=== PATIENT | female | born 1955 | race Caucasian/White ===

== ENCOUNTER 2019-02-16 22:45 | Inpatient (IN) | payer BC ==
[2019-02-16 23:27] LABS: #Basophils 0.1 thou/uL (0.0-0.2); #Eosinphils 0.3 thou/uL (0.0-0.7); #Lymphocytes 3.3 thou/uL (1.20-3.40); #Monocytes 0.7 thou/uL (0.11-0.59); #Neutrophils 3.2 thou/uL (1.40-6.50); %Basophils 0.8 % (0.0-1.0); %Eosinophils 4.3 % (0.0-10.0); %Lymphocytes 43.1 % (21.0-51.0); %Monocytes 9.5 % (0.0-10.0); %Neutrophils 42.2 % (42.0-75.0); Hemoglobin 12.2 g/dL (12.0-16.0); Mean Corpuscular HGB CONC 33.3 g/dL (32.0-36.0); Mean Corpuscular Hemoglobin 30.5 pg (27.0-31.0); Mean Corpuscular Volume 91.4 fL (78.0-98.0); Mean Platelet Volume 6.9 fL (7.4-10.4); Platelet Count 289 thou/uL (130-400); RBC Distribution Width 12.6 % (11.5-14.5); Red Blood Cell (RBC) Count 4.02 mill/uL (4.20-5.40); White Blood Cell (WBC) Count 7.6 thou/uL (4.8-10.8)
--- NOTE | 2019-02-16 23:32 | CT ---
CT HEAD WITHOUT CONTRAST: 02/16/19 Multiple axial tomograms were obtained through the head without IV enhancement. INDICATION: Mental status change. Ventricles have normal size and position. Moderate chronic ischemic white matter changes are noted in both cerebral hemispheres. There is no mass or hemorrhage. No evidence of acute cortical infarct. IMPRESSION: Moderately severe chronic ischemic white matter change. POS: [facility]
[2019-02-16 23:36] LABS: Bilirubin Negative (Negative); Blood, Urine Negative (Negative); Clarity Clear (Clear); Glucose, Urine (Dipstick) Negative (Negative); Leukocyte Negative (Negative); Nitrite Negative (Negative); Protein, Urine (Dipstick) Negative (Neg-Trace); Urobilinogen 0.2 mg/dL (0.2-1.0); pH, Urine 5.5 (5.0-9.0)
[2019-02-16 23:42] LABS: Acetaminophen Less than 6.0 mcg/mL (10.0-30.0); Alcohol Less than 10 mg/dL (Less than 10); Salicylate Less than 8.0 mg/dL (15.0-30.0)
[2019-02-16 23:44] LABS: ALT (SGPT) 18 U/L (8-55); AST (SGOT) 20 U/L (5-34); Alkaline Phosphatase 93 U/L (40-150); Anion Gap 13 mmol/L (10-20); BUN (Urea Nitrogen) 15 mg/dL (9.8-20.1); Bilirubin, Total 0.4 mg/dL (0.2-1.2); Calc. Creatinine Clearance 0 mL/min (70-130); Calcium 9.4 mg/dL (7.8-10.44); Carbon Dioxide 21 mmol/L (23-31); Chloride 112 mmol/L (98-107); Estimated GFR-MDRD 68; Globulin 2.9 g/dL (2.4-3.5); Glucose 102 mg/dL (80-115); Magnesium 2.5 mg/dL (1.6-2.6); Potassium 3.9 mmol/L (3.5-5.1); Protein, Total 6.9 g/dL (6.0-8.3); Sodium 142 mmol/L (136-145)
[2019-02-16 23:45] LABS: Amphetamine Not Detected (NotDetected); Barbiturates Screen Not Detected (NotDetected); Benzodiazepine Screen Not Detected (NotDetected); Cocaine Metabolite Screen Not Detected (NotDetected); Medtox Control Line Valid? VALID (VALID); Medtox Reader # READER 1; Methadone Not Detected (NotDetected); Methamphetamine Not Detected (NotDetected); Opiate Screen Not Detected (NotDetected); Oxycodone Screen Not Detected (NotDetected); Phencyclidine (PCP) Not Detected (NotDetected); THC/Cannabinoid Screen Not Detected (NotDetected); Tricyclic Screen Not Detected (NotDetected)
[2019-02-17] MEDS ORDERED: Aspirin 325 MG TAB ONE (00:07)
[2019-02-17 03:30] VITALS: BMI 40.8
[2019-02-17] MEDS ORDERED: hydrALAZINE 20 MG/ML VIAL SLOW IVP PRN (04:30)
--- NOTE | 2019-02-17 05:16 | HP ---
PRIMARY CARE PROVIDER: None. CHIEF COMPLAINT: Difficulty speaking. HISTORY OF PRESENT ILLNESS: Ms. Mendoza is a pleasant 63-year-old lady, who was seen at [facility] on 02/17/2019. She does not have a primary care provider. She reportedly started having difficulty speaking yesterday morning. Later in the day, she went to have lunch with her daughter. After having lunch, they went home. At home, she again had difficulty speaking. Her main difficulty appeared to consist of finding words. She was substituting nonsensical words. She reportedly used the word bread to describe a traffic light. She was therefore brought to the emergency room. By the time I saw the patient, her symptoms had resolved. REVIEW OF SYSTEMS: All other systems reviewed and found to be negative. PAST MEDICAL HISTORY: None. PAST SURGICAL HISTORY: section and tonsillectomy. SOCIAL HISTORY: No history of tobacco use, alcohol use, or recreational drug use. FAMILY HISTORY: Significant for stroke in her mother and sister. ALLERGIES: NO KNOWN DRUG ALLERGIES. CURRENT MEDICATIONS: None. PHYSICAL EXAMINATION: GENERAL: On examination, Ms. Mendoza is awake and alert, not in acute distress. VITAL SIGNS: Blood pressure is 126/71, pulse 77, respiratory rate 12, and oxygen saturation 96% on room air. She is afebrile. She is morbidly obese, with a BMI of 40.8. EYES: No scleral icterus, no conjunctival pallor. ENT: Moist mucosal membranes. No oropharyngeal erythema or exudates. NECK: Supple, nontender, trachea is midline. RESPIRATORY: Accessory muscles of breathing are not active. Chest wall movements are symmetric bilaterally. Lungs are clear to auscultation without wheeze, rhonchi, or crepitations. CARDIOVASCULAR: S1 and S2 are heard, regular. Peripheral pulses palpable. No carotid bruit. No pericardial rub. ABDOMEN: Soft, nontender, bowel sounds heard. NEUROLOGIC: Cranial nerves 2 through 12 are intact. No focal motor or sensory deficits. Power is 5/5 in all 4 extremities. Deep tendon reflexes are 2+, plantars are downgoing bilaterally. Speech is fluent. MUSCULOSKELETAL: Power is 5/5 in all 4 extremities. SKIN: No rashes or subcutaneous nodules. LYMPHATIC: No cervical lymphadenopathy. PSYCHIATRIC: Normal mood, normal affect, the patient is oriented to person, place, and time. LABORATORY DATA: Ms. Mendoza's labs and investigations were reviewed. Electrocardiogram showed normal sinus rhythm, no ST changes to suggest an acute coronary syndrome. Noncontrast CT scan of the brain showed moderately severe chronic ischemic white matter change. She has an unremarkable CBC, mildly decreased carbon dioxide of 21, elevated chloride of 112, otherwise normal comprehensive metabolic profile, normal troponin-I and normal TSH. Urinalysis is positive for trace ketones. Plasma and urine drug screens were negative. ASSESSMENT AND PLAN: Ms. Mendoza is a pleasant 63-year-old lady, who was seen at [facility] on 02/17/2019. Her problem list includes: 1. Transient ischemic attack: Ms. Mendoza had episodes of expressive aphasia, which appeared to have resolved. She will be admitted to the hospital for further workup, including 2D echocardiogram, carotid Dopplers, MRI of the brain, and Neurology Service consult. We will continue her on aspirin. 2. Metabolic acidosis: Mild, likely secondary to starvation ketosis. We will recheck Chem-7. LEVEL OF RISK: Moderate. LEVEL OF COMPLEXITY: Moderate. Job ID: [id number]
[2019-02-17] MEDS: Aspirin 325 mg Enteric Coated Tablet PO SCH (08:24)
--- NOTE | 2019-02-17 10:15 | CON ---
DATE OF CONSULTATION: 02/17/2019 CONSULTING PHYSICIAN: Hospitalist Services. IMPRESSION: Possible left hemispheric ischemia with subjective word-finding difficulty and subtle right-sided weakness. PLAN: 1. Aspirin. 2. Low-dose statin. 3. Carotid ultrasound. 4. Echocardiogram. 5. MRI of the brain. HISTORY OF PRESENT ILLNESS: Ms. Mendoza is a 63-year-old white female with no significant past history other than being overweight. She has been working at [employer] for 21 years. She reports she has been having a very heavy work schedule, having to work 6 out of 7 days of the week. She was at home and noticed that she was having some word-finding difficulty. 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 She has no problems with comprehension. She denies that there has been any slurring or difficulty swallowing. She denies any lateralized weakness or numbness. She has no problems with reading. She has never had any stroke symptoms in the past. PAST MEDICAL HISTORY: Negative for any risk factors. ALLERGIES: NONE. SOCIAL HISTORY: No tobacco or alcohol. FAMILY HISTORY: Noncontributory. MEDICATIONS: Reviewed. REVIEW OF SYSTEMS: A 10-system review of systems is otherwise negative. PHYSICAL EXAMINATION: GENERAL: She is an overweight, middle-aged woman, sitting at the bedside, in no distress. VITAL SIGNS: Blood pressure 137/73, pulse 66, respirations 20, and temperature 98. HEENT: Pupils are equal and reactive. Conjunctivae clear. Oropharynx clear. NECK: Supple. No lymphadenopathy. EXTREMITIES: No cyanosis or edema. NEUROLOGIC: She is alert and appropriate. Her speech is fluent and clear. Cranial nerves were intact. Motor exam showed a slight fix on arm roll testing on the right side. Sensation was intact to touch. Her gait and stability were normal. No abnormal movements were seen. No tremor or dysmetria was present. LABORATORY DATA: CBC, serum chemistry, urinalysis, and toxicology were all negative. Lipid profile was not performed. IMAGING: CT scan of the brain showed some microvascular disease. SUMMARY: This is a middle-aged woman with evidence of some microvascular disease on CT, but no other risk factors for a stroke. She presents with some subtle abnormalities of speech and possibly some weakness on the right. I agree with current treatment and workup. I will follow up with her tomorrow. Job ID: [id number]
--- NOTE | 2019-02-17 11:28 | PDOC.PN ---
- Subjective Encounter Start Date: 02/17/19 Encounter Start Time: 11:26 Subjective: Patient resting comfortably. Undergoing echo. States she feels well but -: concerned about upcoming travel plans tomorrow. Speech has improved. -: No further weakness in right arm. Denies any headache or dizziness. Has not been mobilizing yet this morning. Reports good appetite. Denies any n/v. No abdominal pain. - Objective MAR Reviewed: Yes Vital Signs & Weight: Vital Signs (12 hours) Temp Pulse Resp BP BP Pulse Ox 02/17/19 07:20 98.0 F 66 20 137/73 93 L 02/17/19 04:00 98.7 F 77 12 126/71 96 02/17/19 01:15 97.8 F 67 18 183/78 H 96 Weight Weight 215 lb 14.4 oz I&O: 02/16/19 02/17/19 02/18/19 06:59 06:59 06:59 Intake Total 200 300 Balance 200 300 Result Diagrams: 02/18/19 04:20 02/18/19 04:20 Phys Exam - Physical Examination Constitutional: NAD HEENT: PERRLA, moist MMs, sclera anicteric, oral pharynx no lesions Neck: no nodes, supple, full ROM Respiratory: no wheezing, no rales, no rhonchi, clear to auscultation bilateral Cardiovascular: RRR Gastrointestinal: soft, non-tender, no distention, positive bowel sounds Musculoskeletal: no edema Neurological: normal sensation, moves all 4 limbs Psychiatric: normal affect, A&O x 3 Skin: no rash, normal turgor Dx/Plan (1) TIA (transient ischemic attack) Code(s): G45.9 - TRANSIENT CEREBRAL ISCHEMIC ATTACK, UNSPECIFIED Status: Acute (2) Metabolic acidosis Code(s): E87.2 - ACIDOSIS Status: Acute (3) Obesity Code(s): E66.9 - OBESITY, UNSPECIFIED Status: Chronic Qualifiers: Obesity classification: adult class 3 (BMI >= 40) Body mass index: BMI 40.0 -44.9 - Plan cont current plan of care Patient seen by Dr. Bui this morning. -: MRI Brain, Carotid US and Echo pending. -: Disposition based on those results. -: Will continue to monitor. -: ADDENDUM: Acute lacunar infarct in the left basilar ganglia. Dr. Jag aware, further imaging as per Dr. Bui. Switched to inpatient status. Patient seen and examined in room 202. Agree with above documentation by y. Is on asp, lipitor. BP is stable. D/w patient and family at bedside.
--- NOTE | 2019-02-17 12:02 | ULT ---
CAROTID ULTRASOUND: COMPARISON: None. HISTORY: TIA. TECHNIQUE: Multiplanar, johnson scale, and color Doppler images were obtained in a carotid ultrasound. Spectral an alysis of the Doppler waveforms was performed. FINDINGS: No significant plaque is seen in either internal or common carotid artery. The Doppler waveforms are normal bilaterally. Peak systolic velocity in the right ICA is 74 cm/s. Peak systolic velocity in the right CCA is 92 cm /s. The right ICA/CCA ratio is 0.8. Peak systolic velocity in the left ICA is 90 cm/s. Peak systolic velocity in the left CCA is 130 cm/ s. The left ICA/CCA ratio is 0.9. Both vertebral arteries demonstrate antegrade flow without focal stenosis. IMPRESSION: No evidence of hemodynamically significant stenosis. POS: [facility]
--- NOTE | 2019-02-17 12:47 | MRI ---
MRI BRAIN WITHOUT CONTRAST: HISTORY: Slurred speech. CORRELATION: CT scan from previous day. FINDINGS: There is a small focus of restricted diffusion in the left basal ganglia. No evidence of transcortic al infarct, hemorrhage, midline shift, or abnormal extraaxial fluid collections is seen. The ventric ular size is appropriate and the basilar cisterns are patent. Multiple foci of T2 prolongation in th e periventricular white matter are consistent with chronic small-vessel ischemic disease. The visual ized paranasal sinuses and mastoid air cells are well aerated. IMPRESSION: 1. Acute lacunar infarction in the left basal ganglia. 2. Chronic small-vessel ischemic disease. POS: [facility]
[2019-02-17] MEDS ORDERED: Atorvastatin Calcium 40 MG TAB PO SCH (21:00)
[2019-02-18 04:35] LABS: #Basophils 0.1 thou/uL (0.0-0.2); #Eosinphils 0.2 thou/uL (0.0-0.7); #Lymphocytes 2.5 thou/uL (1.20-3.40); #Monocytes 0.7 thou/uL (0.11-0.59); #Neutrophils 2.6 thou/uL (1.40-6.50); %Basophils 0.9 % (0.0-1.0); %Lymphocytes 40.9 % (21.0-51.0); %Monocytes 11.5 % (0.0-10.0); %Neutrophils 42.7 % (42.0-75.0); Hemoglobin 12.9 g/dL (12.0-16.0); Mean Corpuscular HGB CONC 33.2 g/dL (32.0-36.0); Mean Corpuscular Hemoglobin 30.7 pg (27.0-31.0); Mean Corpuscular Volume 92.2 fL (78.0-98.0); Mean Platelet Volume 6.9 fL (7.4-10.4); Platelet Count 238 thou/uL (130-400); RBC Distribution Width 12.6 % (11.5-14.5); Red Blood Cell (RBC) Count 4.22 mill/uL (4.20-5.40); White Blood Cell (WBC) Count 6.1 thou/uL (4.8-10.8)
[2019-02-18 05:06] LABS: Anion Gap 14 mmol/L (10-20); BUN (Urea Nitrogen) 15 mg/dL (9.8-20.1); Calc. Creatinine Clearance 119 mL/min (70-130); Calcium 8.9 mg/dL (7.8-10.44); Carbon Dioxide 19 mmol/L (23-31); Chloride 111 mmol/L (98-107); Cholesterol 183 mg/dl (< 200 Desired); Estimated GFR-MDRD 79; Glucose 96 mg/dL (80-115); HDL Cholesterol 44 mg/dL (>60 Neg Risk); Potassium 4.4 mmol/L (3.5-5.1); Sodium 140 mmol/L (136-145); Triglycerides 160 mg/dL (Less than 150)
[2019-02-18 05:10] LABS: Cardiac Risk 3.6 (Less than 4.5); LDL Cholesterol, Calculated 97 mg/dL
[2019-02-18] MEDS: Aspirin 325 mg Enteric Coated Tablet PO SCH (08:34)
[2019-02-18 11:49] LABS: Hemoglobin A1c 5.6 % (4.0-6.0)
[2019-02-18 11:53] VITALS: BP 121/66; TEMP 97.5
--- NOTE | 2019-02-18 20:32 | DIS ---
DATE OF ADMISSION: 02/17/2019 DATE OF DISCHARGE: 02/18/2019 DISCHARGE DIAGNOSES: 1. Acute lacunar infarct in the left basal ganglia. 2. History of hypertension. HOSPITAL COURSE: The patient is a 63-year-old female who initially presented to the hospital on 02/17, with complaints of some slurred speech. The patient at this time initially had a CT brain which did not show any acute infarct, just indicated moderately severe chronic ischemic white matter changes. She later on then underwent a brain MRI which indicated a left basal ganglia acute lacunar infarct. She also had carotid Dopplers and an echocardiogram. Her carotid Dopplers did not indicate any significant hemodynamically or significant stenosis. She also had an echocardiogram which indicated an EF 55% to 60%. The patient at this time was seen by Neurology. She was put on aspirin and statin. She will follow up with her primary care doctor in 1 to 2 weeks. MEDICATIONS: She will be discharged home on: 1. Aspirin 325 daily. 2. Atorvastatin 40 mg daily. 3. Tylenol PM as needed. PHYSICAL EXAMINATION: VITAL SIGNS: Temperature 97.5, 99% on room air, blood pressure 121/66. GENERAL: She is awake, alert, oriented x3. Does not appear in distress. CV: S1 and S2 present. No murmurs, rubs, or gallops. ABDOMEN: Soft and nontender. Bowel sounds are present x2. EXTREMITIES: No edema. Pedal pulses are present x2. Again, she will be discharged home. She will follow up with her primary care doctor. Job ID: [id number]
== END 2019-02-18 13:57 | disposition home or self-care (01) | DRG 65 ==
LOC: ERS 22:45 → 2SE 02-17 00:52 → OBSVTOIN 02-17 00:52
PROVIDERS: ADMIT Internal Medicine; ATTEND Internal Medicine
DX: I63.9 Cerebral infarction, unspecified (principal); E87.2 Acidosis; G81.91 Hemiplegia, unspecified affecting right dominant side; I10 Essential (primary) hypertension; R47.81 Slurred speech; R47.01 Aphasia; E88.89 Other specified metabolic disorders; T73.0XXA Starvation, initial encounter
CPT/HCPCS: 36415; 70450; 70551; 80048; 80053; 80061; 80306; 80307; 81003; 83036; 83735; 84443; 84484; 85025; 93005; 93306; 93880; 94760

== ENCOUNTER 2019-06-11 16:43 | Inpatient (IN) | payer BC, MEDICARE ==
[2019-06-11 17:15] LABS: #Lymphocytes 1.9 thou/uL (1.20-3.40); #Monocytes 0.5 thou/uL (0.11-0.59); %Eosinophils 0.4 % (0.0-10.0); %Lymphocytes 14.3 % (21.0-51.0); %Neutrophils 81.3 % (42.0-75.0); Mean Corpuscular HGB CONC 33.4 g/dL (32.0-36.0); Mean Corpuscular Hemoglobin 30.3 pg (27.0-31.0); Mean Corpuscular Volume 90.5 fL (78.0-98.0); Mean Platelet Volume 7.1 fL (7.4-10.4); Platelet Count 321 thou/uL (130-400); RBC Distribution Width 12.3 % (11.5-14.5); Red Blood Cell (RBC) Count 4.63 mill/uL (4.20-5.40); White Blood Cell (WBC) Count 13.5 thou/uL (4.8-10.8)
--- NOTE | 2019-06-11 17:16 | RAD ---
XR Chest 1 View Portable History: Chest pain Comparison: None. Findings: Nodular density projecting of the right lung base. Remainder the lungs are clear. Heart siz e upper limits of normal. No acute osseous abnormality. Impression: Nodular density projecting over the right lung base. Follow-up radiographs in 3-6 months recommended.
[2019-06-11 17:33] LABS: ALT (SGPT) 17 U/L (8-55); AST (SGOT) 19 U/L (5-34); Albumin 4.2 g/dL (3.4-4.8); Alkaline Phosphatase 94 U/L (40-110); Anion Gap 15 mmol/L (10-20); BUN (Urea Nitrogen) 15 mg/dL (9.8-20.1); Bilirubin, Total 0.6 mg/dL (0.2-1.2); CK (CPK) 132 U/L (29-168); Calc. Creatinine Clearance 0 mL/min (70-130); Calcium 9.5 mg/dL (7.8-10.44); Carbon Dioxide 20 mmol/L (23-31); Chloride 107 mmol/L (98-107); Estimated GFR-MDRD 73; Globulin 3.1 g/dL (2.4-3.5); Glucose 139 mg/dL (80-115); Lipase 20 U/L (8-78); Potassium 4.4 mmol/L (3.5-5.1); Protein, Total 7.3 g/dL (6.0-8.3); Sodium 138 mmol/L (136-145)
--- NOTE | 2019-06-11 17:47 | CT ---
CT Brain WO Con History: Headache. Comparison: CT brain February 2019 Findings: Old bilateral lacunar infarcts. No acute territorial infarct or hemorrhage. No midline shif t or mass effect. Calvarium is intact. Paranasal sinuses and mastoids are clear. Impression: No acute intracranial hemorrhage.
[2019-06-11] MEDS ORDERED: Ondansetron PF 4 MG/2 ML Vial ONE (18:03)
[2019-06-11] MEDS ORDERED: Enoxaparin Sodium 100 MG/ML SYRINGE ONE (18:03)
[2019-06-11] MEDS ORDERED: Nitroglycerin 0.4 MG TAB 1 EACH ONE (18:04)
[2019-06-11 20:17] LABS: Bilirubin Negative (Negative); Blood, Urine Negative (Negative); Clarity Clear (Clear); Glucose, Urine (Dipstick) Normal (Negative); Leukocyte 75 Leu/uL (Negative); Nitrite Negative (Negative); Protein, Urine (Dipstick) 20 mg/dL (Neg-Trace); RBC/HPF 0-3 HPF (0-3); Squamous Epithelial 0-3 HPF (0-3); Urobilinogen Normal mg/dL (Less than 2); WBC/HPF 0-3 HPF (0-3)
[2019-06-11 20:25] LABS: Bacteria/HPF None Seen HPF (None Seen); Mucous/LPF 1+ LPF (<2+)
[2019-06-11] MEDS ORDERED: Acetaminophen 325 MG TAB PO PRN (20:47)
[2019-06-11] MEDS ORDERED: HYDROcodone/Acetaminophen 5/325 mg Tablet PO PRN ×2 (20:47)
[2019-06-11] MEDS ORDERED: Senokot S 8.6-50 MG TAB PO PRN (20:47)
[2019-06-11] MEDS ORDERED: Ondansetron PF 4 MG/2 ML Vial IVP PRN (20:49)
[2019-06-11] MEDS ORDERED: Famotidine 20 MG TAB ONE (23:47)
[2019-06-11] MEDS: Famotidine 20 MG TAB PO SCH (23:51)
[2019-06-11 23:58] LABS: Troponin I 1.021 ng/mL (< 0.028)
--- NOTE | 2019-06-12 00:30 | HP ---
PRIMARY CARE PHYSICIAN: Dr. Espinal. CHIEF COMPLAINT: Chest pain, nausea, vomiting, diarrhea. HISTORY OF PRESENT ILLNESS: Ms. Mendoza is a 64-year-old female who reported to the emergency room today with complaints of chest pain, nausea, vomiting, diarrhea. Reports that she initially came to the ER for nausea, vomiting, diarrhea, but reports that chest pain began while she was on her way here. She evidently told the ER that she was experiencing some sharp abdominal pain but during my exam, she denied that she had any current pain, but reports that she did have some nausea and did validate the vomiting and diarrhea that happened since yesterday. The patient reports that she was hospitalized for CVA in February of 2019. Reports that she initially had some right-sided weakness but after physical therapy, she reports that she no longer has any weakness. She does take a full-strength aspirin every day. The patient reports chills. Denies fever. Past medical history pertinent for hyperlipidemia, TIA, CVA in February of 2019. In February, she had an echocardiogram with an EF of 55% to 60%. E/A flow reversal suggestive of diastolic dysfunction. Mild mitral regurgitation. Minimal aortic stenosis and mild tricuspid regurgitation. In the emergency room here, workup included a CT scan which was negative for any acute findings. However, she had several pertinent lab results, white blood cell count 13.5, glucose 139. First troponin was 0.36, second one was 0.92, third one was 1.02. She was given a dose of Lovenox 1 mg/kg in the emergency room and then admitted for further management. Her EKG shows normal sinus rhythm, beats per minute 69, ST segments normal, T-waves normal, axis is normal. Second one showed a sinus arrhythmia beats per minute 74. ST segments T-waves normal, axis is normal. REVIEW OF SYSTEMS: The patient reports chills. Denies fever. Reports chest pain. Denies palpitations. Denies cough. Denies shortness of breath. Reports abdominal pain earlier today. Reports nausea, vomiting. Reports diarrhea. Denies any dysuria. Denies any edema. All other systems are reviewed and are negative unless mentioned in the HPI. PAST MEDICAL HISTORY: Hyperlipidemia, CVA in February 2019, TIAs. PAST SURGICAL HISTORY: section, tonsillectomy. PSYCHIATRIC HISTORY: None. SOCIAL HISTORY: Denies any alcohol or drug use. No smoking history. FAMILY HISTORY: Pertinent for cardiac disease. PHYSICAL EXAMINATION: VITAL SIGNS: Blood pressure 122/81, pulse is 65, respirations are 16, temperature is 98.2, pO2 sats are 100% on room air. CONSTITUTIONAL: The patient is alert and oriented to person, place, and time. HEENT: Head is atraumatic and normocephalic. Eyes; eyelids are normal to inspection. Pupils are equally round and reactive to light. ENT; mouth exam is normal. Mucous membranes are moist. NECK: Normal range of motion. Trachea is midline. CHEST: Movement is symmetrical. Chest expansion is equal. Breath sounds are clear. CARDIOVASCULAR: Regular heart rate and rhythm. Heart sounds are normal. ABDOMEN: Diffusely tender. No distention. No rebound. No guarding. BACK: Normal range of motion. Normal inspection. EXTREMITIES: Upper extremity, normal range of motion. Inspection is normal. Radial pulses are equal. Lower extremity, normal inspection. Normal range of motion. Pedal pulses are normal. NEURO: Oriented to person, place, and time. Speech is normal. The patient has a left-sided facial droop. PSYCH: Has a normal affect. PLAN/ASSESSMENT: 1. Non ST-elevation myocardial infarction. Cardiology consultation has been placed. Troponins x3 are positive. Lovenox 1 mg/kg has been ordered b.i.d. The patient has taken an aspirin today. We will continue this daily. Make the patient n.p.o. after midnight. 2. History of hyperlipidemia. We will check lipids in the morning. Restart home medications. 3. Gastrointestinal prophylaxis has been started. Deep venous thrombosis prophylaxis with Lovenox. 4. Hospital course dependent on clinical findings. Job ID: [id number]
[2019-06-12 03:51] LABS: #Eosinphils 0.1 thou/uL (0.0-0.7); #Lymphocytes 2.7 thou/uL (1.20-3.40); #Neutrophils 7.7 thou/uL (1.40-6.50); %Basophils 0.3 % (0.0-1.0); %Eosinophils 1.1 % (0.0-10.0); %Lymphocytes 23.6 % (21.0-51.0); %Monocytes 8.3 % (0.0-10.0); %Neutrophils 66.7 % (42.0-75.0); Hemoglobin 13.4 g/dL (12.0-16.0); Mean Corpuscular HGB CONC 33.2 g/dL (32.0-36.0); Mean Corpuscular Hemoglobin 30.3 pg (27.0-31.0); Mean Platelet Volume 6.8 fL (7.4-10.4); Platelet Count 285 thou/uL (130-400); RBC Distribution Width 12.4 % (11.5-14.5); Red Blood Cell (RBC) Count 4.43 mill/uL (4.20-5.40); White Blood Cell (WBC) Count 11.6 thou/uL (4.8-10.8)
[2019-06-12 04:13] LABS: ALT (SGPT) 14 U/L (8-55); AST (SGOT) 20 U/L (5-34); Albumin 3.6 g/dL (3.4-4.8); Alkaline Phosphatase 82 U/L (40-110); Anion Gap 8 mmol/L (10-20); BUN (Urea Nitrogen) 11 mg/dL (9.8-20.1); Bilirubin, Total 0.6 mg/dL (0.2-1.2); Calc. Creatinine Clearance 0 mL/min (70-130); Calcium 8.8 mg/dL (7.8-10.44); Carbon Dioxide 26 mmol/L (23-31); Chloride 107 mmol/L (98-107); Estimated GFR-MDRD 79; Globulin 3.1 g/dL (2.4-3.5); Glucose 105 mg/dL (80-115); Lipase 26 U/L (8-78); Potassium 3.9 mmol/L (3.5-5.1); Protein, Total 6.7 g/dL (6.0-8.3); Sodium 137 mmol/L (136-145)
[2019-06-12] MEDS ORDERED: Famotidine 20 MG TAB ONE (07:40)
[2019-06-12] MEDS ORDERED: Enoxaparin Sodium 100 MG/ML SYRINGE ONE (07:40)
[2019-06-12] MEDS: Famotidine 20 MG TAB PO SCH ×2 (08:08→20:41)
[2019-06-12] MEDS: Enoxaparin Sodium 100 MG/ML SYRINGE SC SCH ×2 (08:08→20:40)
--- NOTE | 2019-06-12 12:56 | CON ---
DATE OF CONSULTATION: 06/12/2019 INDICATION FOR CONSULTATION: A 64-year-old female, who was here back in February and suffered a small CVA and now yesterday developed nausea and vomiting, and on the way to the emergency room, complained some chest pain also. Cardiac enzymes are slightly abnormal. We were asked to see her due to the abnormalities of the cardiac enzymes and also EKG, which has not changed since February of 2019, has some nonspecific changes. She has what appears to be small Q-waves in the inferior leads, but otherwise no significant EKG changes were noted that would indicate any acute myocardial infarction. However, the cardiac enzymes on arrival here have been abnormal. Her first troponin I was 0.36, increased up to 0.92, and the last from midnight last night was 1.02. She is very comfortable at this time, however, and denied any previous cardiac history. She has refused some blood pressure medicines and only taken 2.5 mg of lisinopril. At this time, she feels better. She denies any chest pain. Her nausea and vomiting have resided. She also had a headache the day before admission, but otherwise is doing relatively well. Her blood pressures have been relatively stable at home, but yesterday when she was nauseated, her blood pressure was in the 170 systolically. PAST MEDICAL HISTORY: Significant for the CVA in February of 2019 with an acute lacunar infarct involving the left basal ganglia. She also has chronic small-vessel disease. She has had a tonsillectomy. She had a 38 years ago. SOCIAL HISTORY: She is . She has 2 children, no heart disease and no history of tobacco abuse. She has occasional alcohol use. 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 FAMILY HISTORY: She had some siblings, who also had history of CVAs, but no previous cardiac history. ALLERGIES: SHE IS ALLERGIC TO STATINS, WHICH CAUSED HER TO HAVE PAIN AND WEAKNESS. MEDICATIONS: Include, 1. Aspirin 325 mg a day. 2. Lisinopril 2.5 mg a day. 3. [id number] Metamucil and also medicines [id number] for leg cramps. REVIEW OF SYSTEMS: She complains of some left ear, decreased hearing loss. She has headaches. She has occasional nausea and vomiting, but this is not a chronic problem. She has leg cramps at night. She has left knee arthritis. Otherwise, her 12-point review of systems unremarkable, except noted in the history of present illness. PHYSICAL EXAMINATION: GENERAL: Reveals a well-developed, well-nourished, very pleasant female, blood pressure is 122/65, heart rate is 78 and regular, respiratory rate is 18, and O2 saturation is 100%. She is afebrile. HEENT: Shows the head to be normocephalic and atraumatic. I could not hear any significant bruits. CHEST: Clear to auscultation without rales, rhonchi, or wheezing. CARDIOVASCULAR: Reveals a regular rate and rhythm. Normal S1 and S2. She has a very soft systolic murmur at the upper sternal border, otherwise no significant abnormalities are noted. ABDOMEN: Shows obesity with positive bowel sounds. No organomegaly or masses are noted. Femoral pulses are present. EXTREMITIES: Showed no clubbing, cyanosis, or edema. Pedal pulses are also present. NEUROLOGIC: Neurologically, she appears to be intact. I cannot elicit any gross focal motor deficits at this time. She appears to have normal strength and tone. She is able to ambulate by the side of the bed and into the chair without any difficulties. IMAGING STUDIES: EKG shows normal sinus rhythm with possible old inferior myocardial infarction with Q-waves in II, III, and AVF, but no change since 02/2019. Previous echocardiogram in February of 2019, showed an ejection fraction of 55% to 60% with what appears to be diastolic dysfunction with mild mitral and tricuspid valve regurgitation, very mild aortic valve stenosis. LABORATORY DATA: Shows a hemoglobin of 13.4, WBC of 11.6, platelet count of 285,000. Sodium 137, potassium 3.9, BUN 11, creatinine 0.74, blood sugars 105. Cardiac enzymes are noted. Her MB was only 5.0. IMPRESSION: A 64-year-old female with a type 2 dul-DR-zmfjhby elevation myocardial infarction, most likely due to demand ischemia associated with high blood pressure, nausea, and vomiting. This appears to be stable and has improved. We will repeat the cardiac enzymes to ensure that they will be trending downward. Otherwise, she will need to undergo further evaluation either by stress testing or cardiac catheterization. 1. Hypertension. This is under very good control. At this time, we will continue her medications with lisinopril. 2. Status post cerebrovascular accident involving the left basal ganglia. I believe she has been taking aspirin and possibly even Plavix. We will continue to monitor this and this will be taken care with by the primary care service. At this time, she is very comfortable and does not appear to be in any new acute danger. We will repeat the cardiac enzymes shortly. Job ID: [id number]
[2019-06-12 13:17] LABS: Troponin I 0.501 ng/mL (< 0.028)
--- NOTE | 2019-06-12 17:38 | PDOC.HOSPP ---
- Subjective Encounter Date: 06/12/19 Encounter Time: 17:30 Subjective: f/u for NSTEMI receiving ASA/Lovenox. Feels ok currently and no recurrent CP. - Objective Result Diagrams: 06/12/19 03:36 06/12/19 03:36 Additional Labs: Laboratory Tests 06/11/19 06/11/19 06/11/19 16:58 16:58 20:06 WBC 13.5 H Troponin I 0.360 H* 0.920 H* TSH 3rd Generation 06/11/19 06/12/19 06/12/19 23:20 03:36 12:20 WBC Troponin I 1.021 H* 0.501 H* TSH 3rd Generation 0.7152 Radiology Reviewed by me: Yes (PCXR - R-sided nodule) EKG Reviewed by me: Yes (Tele - SR) Hospitalist ROS - Medication Medications: Active Medications Generic Name Dose Route Start Last Admin Trade Name Freq PRN Reason Stop Dose Admin Enoxaparin Sodium 90 mg 06/12/19 09:00 06/12/19 08:08 Lovenox SC 90 mg 0900,2100 JEREMIAH Administration Famotidine 20 mg 06/11/19 21:00 06/12/19 08:08 Pepcid PO 20 mg BID JREEMIAH Administration - Exam General Appearance: NAD, awake alert Eye: PERRL, anicteric sclera ENT: normocephalic atraumatic, no oropharyngeal lesions Neck: supple, symmetric, no JVD, no thyromegaly, no lymphadenopathy Heart: RRR, no murmur, no gallops, no rubs, normal peripheral pulses Respiratory: CTAB, no wheezes, no rales, no ronchi, normal chest expansion Gastrointestinal: soft, non-tender, non-distended, normal bowel sounds Extremities: no cyanosis, no clubbing, no edema Skin: normal turgor, no lesions Neurological: cranial nerve grossly intact, no new deficit Musculoskeletal: normal tone, normal strength, no muscle wasting Psychiatric: normal affect, A&O x 3 Hosp A/P (1) NSTEMI (non-ST elevated myocardial infarction) Code(s): I21.4 - NON-ST ELEVATION (NSTEMI) MYOCARDIAL INFARCTION Status: Acute Plan: Continue ASA 325mg daily, Lovenox BID, Cardiology considering heart catheterization (2) HTN (hypertension) Code(s): I10 - ESSENTIAL (PRIMARY) HYPERTENSION Status: Chronic Qualifiers: Hypertension type: essential hypertension Qualified Code(s): I10 - Essential (primary) hypertension Plan: Hypotension currently, hold antihypertensives (3) HLD (hyperlipidemia) Code(s): E78.5 - HYPERLIPIDEMIA, UNSPECIFIED Status: Chronic Plan: Check Lipid panel in am (4) Obesity Code(s): E66.9 - OBESITY, UNSPECIFIED Status: Chronic Qualifiers: Obesity classification: adult class 3 (BMI >= 40) Body mass index: BMI 40.0 -44.9 Plan: Dietary counseling, Heart Healthy diet - Plan DVT proph w/SCDs Stable currently Continue ASA Continue Lovenox BID Cardiology consult appreciated AM lab: Lipid profile
[2019-06-12 18:19] VITALS: BMI 39.4
[2019-06-12] MEDS ORDERED: Lisinopril 2.5 MG TAB PO SCH (21:00)
[2019-06-12 21:53] LABS: Critical Call Chem Troponin I RESULT DECREASING; Troponin I 0.329 ng/mL (< 0.028)
[2019-06-13 05:39] LABS: Cardiac Risk 3.6 (Less than 4.5)
[2019-06-13] MEDS: Famotidine 20 MG TAB PO SCH (08:57)
[2019-06-13] MEDS ORDERED: Aspirin 325 mg Enteric Coated Tablet PO SCH (09:00)
[2019-06-13] MEDS ORDERED: Iopamidol 370 76% 100 ML VIAL ONE (09:37)
--- NOTE | 2019-06-13 11:06 | PDOC.CPN ---
- Subjective Date: 06/13/19 Time: 11:08 Interval history: The pt seen and examined. No overnight events. No cardiac complaints. - Objective Allergies/Adverse Reactions: Allergies Allergy/AdvReac Type Severity Reaction Status Date / Time Uhfvohd-Bba-Sii Reductase Allergy Mild Nausea Verified 06/12/19 08:06 Inhibitor Visit Medications: Current Medications Acetaminophen (Tylenol) 650 mg PO Q4H PRN PRN Reason: Headache/Fever/Mild Pain (1-3) Hydrocodone Bitart/Acetaminophen ([place] 5/325) 1 tab PO Q4H PRN PRN Reason: Moderate Pain (4-6) Hydrocodone Bitart/Acetaminophen ([place] 5/325) 2 tab PO Q4H PRN PRN Reason: Severe Pain (7-10) Aspirin (Ecotrin) 325 mg PO DAILY [facility] Last Admin: 06/13/19 08:57 Dose: 325 mg Enoxaparin Sodium (Lovenox) 90 mg SC 0900,2100 [facility] Last Admin: 06/12/19 20:40 Dose: 90 mg Famotidine (Pepcid) 20 mg PO BID [facility] Last Admin: 06/13/19 08:57 Dose: 20 mg Lisinopril (Zestril) 2.5 mg PO HS [facility] Last Admin: 06/12/19 20:41 Dose: 2.5 mg Ondansetron HCl (Zofran) 4 mg IVP Q6H PRN PRN Reason: Nausea/Vomiting Senna/Docusate Sodium (Senokot S) 2 tab PO BIDPRN PRN PRN Reason: Constipation Sodium Chloride (Flush - Normal Saline) 10 ml IVF PRN PRN PRN Reason: Saline Flush Vital Signs & Weight: Vital Signs Temp Pulse Resp BP Pulse Ox 06/13/19 07:30 98 F 64 18 108/57 L 95 06/13/19 04:00 97.7 F 60 16 115/64 95 06/13/19 00:00 98.2 F 75 18 135/79 98 Weight 201 lb 14.4 oz - Physical Exam General: alert & oriented x3 HEENT: mucus membranes moist Neck: supple neck Cardiac: regular rate and rhythm, S1/S2 Lungs: clear to auscultation Skin: clear Musculoskeletal: normal range of motion - Labs Result Diagrams: 06/12/19 03:36 10/08/19 03:36 Troponin/CKMB CK-MB (CK-2) 5.0 ng/mL (0-6.6) 06/11/19 16:58 Troponin I 0.329 ng/mL (< 0.028) H* 06/12/19 21:20 - Telemetry Sinus rhythms and dysrhythmias: sinus rhythm - Assessment/Plan Assessment/Plan: 1. NSTEMI - trending down trop; Stress test today; the pt is asymptomatic. 2. HTN - stable with Lisinopril 2.5mg qd 3. Obesity - MAR reviewed * Echo in 02/2019 with EF 55-60%, grade I dd, mild TR and MR * Stress test today Pt. seen and eval. by me. I have reviewed the EKG this AM and there are signifiucant changes with diffuse T-wave inversions. She is still having some upper abd. and left lower anterior chest discomfort. I feel it may be best to proceed with a cardiac cath rather than a stress test based on these new findings. The troponin I is trending down. I have explained the procedure and riskd to include bleeding ,infection, SD,CVA , remal insifficiency or . She understands and agrees to proceed.
[2019-06-13] MEDS: Enoxaparin Sodium 100 MG/ML SYRINGE SC SCH (11:38)
[2019-06-13] MEDS ORDERED: Communication Order-Pharmacy FS SCH (12:45)
[2019-06-13] MEDS ORDERED: Lidocaine 1% (PF) 30 ML VIAL ONE (13:27)
[2019-06-13] MEDS ORDERED: Heparin 10,000 UNITS/1 ML VIAL ONE (13:28)
[2019-06-13] MEDS ORDERED: Nitroglycerin 100MG/250ML BOT 250 ML ONE (13:28)
[2019-06-13] MEDS ORDERED: Verapamil 5 MG/2 ML VIAL ONE (13:28)
[2019-06-13] MEDS ORDERED: Midazolam HCl 2 mg/2 ml Vial ONE (14:56)
[2019-06-13] MEDS ORDERED: Acetaminophen/Codeine 30-300mg Tablet PO PRN ×2 (15:49)
[2019-06-13] MEDS ORDERED: Sodium Chloride 0.9% 200 ML IV PRN (15:49)
[2019-06-13] MEDS ORDERED: Nitroglycerin 0.4 MG TAB (25 Tab Bottle) SL PRN (15:49)
[2019-06-13 16:56] VITALS: BP 127/60; TEMP 97.5
--- NOTE | 2019-06-13 17:16 | PDOC.HOSPP ---
- Subjective Encounter Date: 06/13/19 Encounter Time: 17:10 Subjective: f/u for CP, NSTEMI and heart cath showing normal coronary arteries but apical dyskinesia and likely Takotsubo changes. No new complaints currently. - Objective Vital Signs & Weight: Vital Signs (12 hours) Temp Pulse Resp BP Pulse Ox 06/13/19 16:00 97.5 F L 64 18 127/60 98 06/13/19 11:20 98.4 F 67 12 128/73 97 06/13/19 09:00 95 06/13/19 07:30 98 F 64 18 108/57 L 95 Weight Weight 201 lb 14.4 oz I&O: 06/12/19 06/13/19 06/14/19 06:59 06:59 06:59 Intake Total 800 Output Total 1150 Balance -350 Result Diagrams: 06/12/19 03:36 06/12/19 03:36 Hospitalist ROS - Medication Medications: Active Medications Generic Name Dose Route Start Last Admin Trade Name Freq PRN Reason Stop Dose Admin Aspirin 325 mg 06/13/19 09:00 06/13/19 08:57 Ecotrin PO 325 mg DAILY JEREMIAH Administration Famotidine 20 mg 06/11/19 21:00 06/13/19 08:57 Pepcid PO 20 mg BID JEREMIAH Administration Lisinopril 2.5 mg 06/12/19 21:00 06/12/19 20:41 Zestril PO 2.5 mg HS JEREMIAH Administration Hosp A/P (1) NSTEMI (non-ST elevated myocardial infarction) Code(s): I21.4 - NON-ST ELEVATION (NSTEMI) MYOCARDIAL INFARCTION Status: Acute (2) HTN (hypertension) Code(s): I10 - ESSENTIAL (PRIMARY) HYPERTENSION Status: Chronic Qualifiers: Hypertension type: essential hypertension Qualified Code(s): I10 - Essential (primary) hypertension (3) HLD (hyperlipidemia) Code(s): E78.5 - HYPERLIPIDEMIA, UNSPECIFIED Status: Chronic (4) Obesity Code(s): E66.9 - OBESITY, UNSPECIFIED Status: Chronic Qualifiers: Obesity classification: adult class 3 (BMI >= 40) Body mass index: BMI 40.0 -44.9 - Plan Stable currently Continue ASA Continue Lovenox BID Cardiology consult appreciated AM lab: Lipid profile
--- NOTE | 2019-06-14 07:48 | PQF ---
GAGANDEEP SCOTT G JEAN MD [id number] [facility]-279 [id number] CLINICAL DOCUMENTATION CLARIFICATION FORM: POST DISCHARGE Addendum to original discharge summary date: ____ Late entry note date: __ DATE: 06-14-2019 ATTN:Dr. Charlene Krause Please exercise your independent, professional judgment in responding to the clarification form. Clinical indicators are provided on the bottom of this form for your review Can you please specify whether Takotsubo CMY is ruled in or ruled out during this encounter? Please check appropriate box(s) to clarify if the following diagnosis has been ruled in or ruled out: Takotsubo CMY [ ] Ruled in diagnosis [ ] Continue to treat [ ] Resolved [ ] Ruled out diagnosis [ ] Cannot rule out diagnosis [ ] Other diagnosis please specify: [ ] Unable to determine For continuity of documentation, please document condition throughout progress notes and discharge summary. Thank You. CLINICAL INDICATORS: HP 06/[address] Romeo Samuel Chief complaint: Chest pain, nausea, vomiting, diarrhea HP 06/[address] Romeo Samuel NSTEMI troponin x3 positive Consult 06/13 pg1 Cath indicated normal coronaries. The LV apex is dyskenitec c/w possible Takotsubo CMY RISK FACTOR: HP 06/12 pg.1 O Jimmie- History of CVA and TIA HP 06/12 pg.1 O Jimmie- Hyperlipidemia Consult 06/12- HTN Consult 06/12- Obesity TREATMENTS: HP- Cardio Consult Dr. Chang Consult 06/12- EKG Op note 06/13- Cardiac catheterization MAR- ASA MAR- Lovenox (This form is maintained as a part of the permanent medical record) 2014 [employer]. All Rights Reserved Shayna [email or web address] [not provided] This was diagnosed at cath. I did not do the d/c summary. I documented this on the cath report. it may improve or resolve. Repeat echocardiopgram in a couple months would be advisable. TORY
--- NOTE | 2019-06-14 09:17 | DIS ---
DATE OF ADMISSION: 06/11/2019 DATE OF DISCHARGE: 06/13/2019 DISCHARGE DIAGNOSES: 1. Demand ischemia of the myocardium with normal coronary arteries. 2. Takotsubo syndrome, suspected. 3. Hypertension, stable. 4. Dyslipidemia. 5. Obesity. CONSULTATIONS: Dr. Jimi Chang with Cardiology Service. PERTINENT LABORATORY AND X-RAY FINDINGS: Troponin I ranged between 0.329 to 1.021. Total cholesterol 164, triglycerides 157, HDL 46, LDL 87. Lipase 26. TSH 0.72. CBC showed a white blood cell count ranged between 11.6 to 13.5. Portable chest x-ray dated 06/11/2019, showed no acute cardiopulmonary process. CT of the brain without contrast dated 06/11/2019, showed no acute intracranial process. Cardiac catheterization dated 06/13/2019, showed normal coronary arteries with apical dyskinesis with possible takotsubo syndrome. Ejection fraction 55% to 60%. HOSPITAL COURSE: The patient was admitted to the telemetry unit after initially presenting with chest pain with associated nausea and vomiting. The patient was noted with elevated troponin I with serial trending showing evidence of non-ST elevation myocardial infarction. The patient was evaluated by the Cardiology Service with initial recommendations for stress testing, converting to a left heart catheterization performed on 06/13/2019, showing normal coronary arteries with an ejection fraction of 55% to 60%. Apical dyskinesia was noted suggesting a takotsubo syndrome. Current recommendations are to continue lisinopril in addition to daily aspirin with followup for outpatient 2D transthoracic echocardiogram after discharge. Telemetry monitoring showed sinus mechanism without evidence of acute arrhythmia or dysrhythmia. The patient overall remained clinically stable during the hospital course and ready for discharge on 06/13/2019. I have examined the patient at the time of discharge and discussed followup instructions. The patient verbalized understanding and in agreement, ready for discharge on 06/13/2019. DISCHARGE MEDICATIONS: 1. Lisinopril 2.5 mg p.o. at bedtime. 2. Enteric-coated aspirin 325 mg p.o. daily. FOLLOWUP: The patient may follow up with her primary care provider, Dr. Chiquis Espinal within 7 days of discharge. The patient may also follow up with Dr. Chang and to call her office for appointment time and date. CONDITION ON DISCHARGE: Stable. ACTIVITY: Ad-elisabeth. DIET: Heart healthy. CODE STATUS: Full. DISPOSITION: Home on 06/13/2019. TIME SPENT: Total time preparing and coordinating discharge is 32 minutes. Job ID: [id number]
== END 2019-06-13 20:32 | disposition home or self-care (01) | DRG 287 ==
LOC: ERS 16:43 → ERHOLD 19:49 → 2NO 06-12 18:11
PROVIDERS: ADMIT Internal Medicine; ATTEND Internal Medicine
PROC: 4A023N7 Measurement of Cardiac Sampling and Pressure, Left Heart, Percutaneous Approach (ICD-10-PCS; principal; 2019-06-13)
PROC: B2151ZZ Fluoroscopy of Left Heart using Low Osmolar Contrast (ICD-10-PCS; 2019-06-13)
PROC: B2111ZZ Fluoroscopy of Multiple Coronary Arteries using Low Osmolar Contrast (ICD-10-PCS; 2019-06-13)
DX: I24.8 Other forms of acute ischemic heart disease (principal); I51.81 Takotsubo syndrome; E78.5 Hyperlipidemia, unspecified; I10 Essential (primary) hypertension; Z60.2 Problems related to living alone; E66.9 Obesity, unspecified; Z88.8 Allergy status to other drugs, medicaments and biological substances; Z79.82 Long term (current) use of aspirin; Z79.899 Other long term (current) drug therapy; Z86.73 Personal history of transient ischemic attack (TIA), and cerebral infarction without residual deficits; Z68.39 Body mass index [BMI] 39.0-39.9, adult
CPT/HCPCS: 36415; 70450; 71045; 80053; 80061; 81003; 81015; 82550; 82553; 83690; 84443; 84484; 85025; 93005; 93458; 94760; 96361; 96372; 96374; 99152; C1769; J1644; J1650; J2001; J2250; J2405; Q9967

== ENCOUNTER 2019-07-12 08:43 | Outpatient (CLI) | payer BC, MEDICARE ==
[2019-07-12 14:29] LABS: Hemoglobin 12.7 g/dL (12.0-16.0); Mean Corpuscular HGB CONC 33.2 g/dL (32.0-36.0); Mean Corpuscular Hemoglobin 30.3 pg (27.0-31.0); Mean Corpuscular Volume 91.4 fL (78.0-98.0); Mean Platelet Volume 7.1 fL (7.4-10.4); Platelet Count 317 thou/uL (130-400); RBC Distribution Width 12.3 % (11.5-14.5); White Blood Cell (WBC) Count 7.5 thou/uL (4.8-10.8)
[2019-07-12 14:35] LABS: Prothrombin Time 13.5 SEC (12.0-14.7)
[2019-07-12 14:42] LABS: Bacteria/HPF None Seen HPF (None Seen); Bilirubin Negative (Negative); Blood, Urine Negative (Negative); Clarity Clear (Clear); Glucose, Urine (Dipstick) Normal (Negative); Leukocyte Negative Leu/uL (Negative); Nitrite Negative (Negative); Protein, Urine (Dipstick) Negative (Neg-Trace); RBC/HPF 0-3 HPF (0-3); Squamous Epithelial 0-3 HPF (0-3); Urobilinogen Normal mg/dL (Less than 2); WBC/HPF 0-3 HPF (0-3)
[2019-07-12 14:52] LABS: Anion Gap 15 mmol/L (10-20); BUN (Urea Nitrogen) 15 mg/dL (9.8-20.1); Calc. Creatinine Clearance 0 mL/min (70-130); Calcium 9.3 mg/dL (7.8-10.44); Carbon Dioxide 23 mmol/L (23-31); Chloride 105 mmol/L (98-107); Estimated GFR-MDRD 72; Glucose 87 mg/dL (80-115); Potassium 4.2 mmol/L (3.5-5.1); Sodium 139 mmol/L (136-145)
== END 2019-07-12 08:44 | disposition home or self-care (01) ==
LOC: LABBT 08:43
PROVIDERS: ATTEND Orthopaedic Surgery
DX: Z01.812 Encounter for preprocedural laboratory examination (principal); M17.12 Unilateral primary osteoarthritis, left knee
CPT/HCPCS: 80048; 81001; 85027; 85610; 87081

== ENCOUNTER 2019-07-12 15:15 | Inpatient (IN) | payer BC, MEDICARE ==
[2019-07-12 13:00] VITALS: BMI 39.2
[2019-07-24] MEDS ORDERED: Sodium Chloride 0.9% 100 ML ONE (05:54)
[2019-07-24] MEDS ORDERED: Tranexamic Acid 1,000 MG/10 ML VIAL ONE ×2 (05:54→09:40)
[2019-07-24] MEDS ORDERED: Vancomycin 1.5 GRAM/300 ML BAG 1.5 GM in Premix Bag 1 BAG IVPB SCH ×2 (06:00→20:00)
[2019-07-24] MEDS ORDERED: Midazolam HCl 2 mg/2 ml Vial ONE (06:21)
[2019-07-24] MEDS ORDERED: Fentanyl 100 MCG/2 ML VIAL ONE ×3 (06:21→09:25)
[2019-07-24] MEDS ORDERED: Lidocaine 1% (PF) 30 ML VIAL ONE (06:30)
[2019-07-24] MEDS ORDERED: Promethazine HCl 25 MG/ML VIAL IM PRN ×2 (06:40→08:19)
[2019-07-24] MEDS ORDERED: Ropivacaine HCl/PF 250 ML in Premix Bag 1 BAG NERVE BLCK SCH (06:40)
[2019-07-24] MEDS ORDERED: HYDROcodone/Acetaminophen 10/325 mg Tablet PO PRN ×2 (06:40)
[2019-07-24] MEDS ORDERED: Ondansetron PF 4 MG/2 ML Vial IVP PRN (06:40)
[2019-07-24] MEDS ORDERED: Zolpidem Tartrate 5 MG TAB PO PRN (06:40)
[2019-07-24] MEDS ORDERED: traMADol HCl 50 MG TAB PO PRN ×2 (06:40)
[2019-07-24] MEDS ORDERED: Fentanyl 100 MCG/2 ML VIAL IV PRN (06:42)
[2019-07-24] MEDS ORDERED: Bupivacaine 0.25% HCL 30 ML VIAL ONE (07:49)
[2019-07-24] MEDS ORDERED: Lidocaine 1% w/Epinephrine 1:100K 20 ML VIAL ONE (07:49)
[2019-07-24] MEDS ORDERED: Promethazine HCl 25 MG/ML VIAL SLOW IVP PRN (08:19)
[2019-07-24] MEDS ORDERED: Ondansetron HCl/PF 4 MG/2 ML Vial IVP PRN (08:19)
[2019-07-24] MEDS ORDERED: Ropivacaine 0.5% HCl/PF (150 MG/30 ML VIAL) ONE (09:57)
[2019-07-24] MEDS ORDERED: PHENYLEPHRINE-NS 100 MCG/ML 10 ML SYRINGE ONE (09:57)
[2019-07-24] MEDS ORDERED: PROPOFOL 200 MG/20 ML VIAL ONE (09:57)
[2019-07-24] MEDS ORDERED: Lidocaine 1% PF 5 ML VIAL ONE (09:57)
[2019-07-24] MEDS ORDERED: Ondansetron PF 4 MG/2 ML Vial ONE (09:57)
[2019-07-24] MEDS ORDERED: Ropivacaine 0.2% HCl/PF (40 MG/20 ML VIAL) ONE (09:57)
--- NOTE | 2019-07-24 10:07 | RAD ---
RADIOGRAPH LEFT KNEE 2 VIEWS: DATE: 07/24/2019 HISTORY: 64-year-old female with chronic left knee pain status post surgery. FINDINGS: Resurfacing changes of articular surfaces of distal femur, patella, and tibial plateau. Metallic pros theses cover the resurfaced articular surfaces of distal femur and tibial plateau. Subcutaneous emphysema in the anterior soft tissues of the thigh and knee indicate recent status of surgery. IMPRESSION: Very recently status post total left knee replacement arthroplasty.
[2019-07-24] MEDS ORDERED: diphenhydrAMINE 25 MG CAP PO PRN (10:17)
[2019-07-24] MEDS ORDERED: Acetaminophen 325 MG TAB PO PRN (10:17)
--- NOTE | 2019-07-24 13:00 | PDOC.HOSPP ---
- Subjective Encounter Date: 07/24/19 Encounter Time: 12:15 Subjective: pt up in bed working with PT. - Objective Vital Signs & Weight: Weight Weight 208 lb Hospitalist ROS - Review of Systems Cardiovascular: denies: chest pain, palpitations, orthopnea, paroxysmal noc. dyspnea, edema, light headedness, other Gastrointestinal: denies: nausea, vomiting, abdominal pain, diarrhea, constipation, melena, hematochezia, other Genitourinary: denies: dysuria, frequency, incontinence, hematuria, retention, other - Exam Neck: negative: supple, symmetric, no JVD, no thyromegaly, no lymphadenopathy, no carotid bruit, JVD Heart: negative: RRR, no murmur, no gallops, no rubs, normal peripheral pulses, irregular, diminshed peripheral pulses, murmur present, II/IV, III/IV Respiratory: negative: CTAB, no wheezes, no rales, no ronchi, normal chest expansion, no tachypnea, normal percussion, rales, rhonchi, tachypneic, wheezes Hosp A/P (1) CAD (coronary artery disease) Code(s): I25.10 - ATHSCL HEART DISEASE OF [place] CORONARY ARTERY W/O ANG PCTRS Status: Acute (2) Stroke Code(s): I63.9 - CEREBRAL INFARCTION, UNSPECIFIED Status: Acute (3) HTN (hypertension) Code(s): I10 - ESSENTIAL (PRIMARY) HYPERTENSION Status: Chronic Qualifiers: Hypertension type: essential hypertension Qualified Code(s): I10 - Essential (primary) hypertension (4) Obesity Code(s): E66.9 - OBESITY, UNSPECIFIED Status: Chronic Qualifiers: Obesity classification: adult class 3 (BMI >= 40) Body mass index: BMI 40.0 -44.9 - Plan pt feeling well, will continue home meds. Her previous admission was for takotsubo.
[2019-07-24] MEDS: Ketorolac Tromethamine 30 MG/ML VIAL IVP SCH ×3 (13:45→23:27)
[2019-07-24] MEDS: Sodium Chloride 0.9% 1,000 ML IV SCH ×2 (13:45→21:57)
[2019-07-24] MEDS: CEFAZOLIN 2 GM in Premix Bag 1 BAG IVPB SCH ×2 (13:46→22:26)
--- NOTE | 2019-07-24 15:27 | OP ---
DATE OF PROCEDURE: 07/24/2019 PREOPERATIVE DIAGNOSIS: Left knee osteoarthritis. POSTOPERATIVE DIAGNOSIS: Left knee osteoarthritis. PROCEDURE PERFORMED: Left total knee arthroplasty. FLAME CHANNELER: Vita Austin PA-C ANESTHESIOLOGIST: Ron. ANESTHESIA: The patient received LMA with a single-shot sciatic and an adductor canal catheter. ESTIMATED BLOOD LOSS: 100 mL. TOURNIQUET TIME: 77 minutes at 300 mmHg. ANTIBIOTICS: Ancef 2 g, vancomycin 1.5 g, and TXA 1 g. IMPLANTS: The patient had Lisa size 4 Triathlon femur, size 4 tibial baseplate, 9 CS poly, and A29 patella. COMPLICATIONS: None. HISTORY OF PRESENT ILLNESS: Serenity Mendoza is a 64-year-old female with a history of left knee pain. I discussed with the patient risks and benefits of a left total knee arthroplasty to include pain, scar, bleeding, infection, damage to vital structures, decreased range of motion and strength, need for further surgeries, failure of procedure, continued pain despite surgical intervention, and loss of life or limb. The patient understood the risks and benefits of procedure and elects to proceed. DESCRIPTION OF PROCEDURE: Time-out was performed designating the patient's left lower extremity as the operative site based on site, consents, and marking. After time-out, the patient's left lower extremity was prepped and draped in sterile fashion, tourniquet was brought up and left for 77 minutes. Anterior midline approach with medial patellar arthrotomy was performed. We excised the fat pad, everted the patella, mapped out the distal femur, cut 0 degrees varus and valgus 10 and 9 and 4 degrees of slope, sizing block sized to 4, cut to put our size 4 block and cut anterior and posterior chamfer cuts, removed the osteophytes, then moved to our tibia, released our PCL and placed retractors, Hohmann, to expose our tibia. We then mapped out our tibia to 0 and 8 with 4 degrees of slope 0 degrees varus and valgus, cut our tibial cut. We then took medial osteophytes, rasped on the medial side slightly where there was a little increased bone density. We then did a completion of our recent PCL, placed the lamina spreaders medial and lateral, and removed our osteophytes medially as well as the medial meniscus, did our posterior decompression, decompressed our PCL. We did same thing on the medial side to help us with positioning the medial and lateral meniscus. Being happy with that, we then came back, placed our tibial tray in position, pinned into position, middle 1/ 3 tibial tubercle in line down the tibia. We then placed our poly and placed our femur. We had good flexion and extension. No instability. I liked the overall alignment. We then washed and we then brought the patient to extension, mapped out the patella to 24 at its greatest cut 12 mm, placed A29 patella. We then tracked well. We drilled our lugs, cut our keel for tibia, removed the implants, washed, cemented our tibia, placed our poly, removed excess cement before placing cement our femur, removed the excess cement, cemented our patella, removed the excess cement, brought the knee into flexion, removed any remaining cement, washed the joint. We then closed the patellar arthrotomy with #2 Vicryl, #2 Quill, 0 Quill, and 2-0 Quill. There was a small rent laterally near the tendon, which we just closed with some 2-0 Vicryl. Portal site, which we closed with #2 Vicryl. We washed and closed it with 2-0 and skin with glue. The patient will be admitted to [place] postop protocol. The patient's family requested that I attempt to see if she go to skilled. I do not feel like she may not be able to based on inpatient and outpatient status, we will attempt. If not, then she will go home with home health. Job ID: [id number] [facility]
[2019-07-24] MEDS: Aspirin 81 mg Enteric Coated Tablet PO SCH (20:12)
[2019-07-24] MEDS: Lisinopril 2.5 MG TAB PO SCH (20:12)
[2019-07-25] MEDS: Ketorolac Tromethamine 30 MG/ML VIAL IVP SCH ×4 (05:52→23:52)
[2019-07-25 06:05] LABS: Mean Corpuscular HGB CONC 33.1 g/dL (32.0-36.0); Mean Corpuscular Hemoglobin 30.4 pg (27.0-31.0); Mean Corpuscular Volume 91.9 fL (78.0-98.0); Mean Platelet Volume 7.1 fL (7.4-10.4); Platelet Count 208 thou/uL (130-400); RBC Distribution Width 12.2 % (11.5-14.5); Red Blood Cell (RBC) Count 3.62 mill/uL (4.20-5.40); White Blood Cell (WBC) Count 7.9 thou/uL (4.8-10.8)
[2019-07-25] MEDS: Sodium Chloride 0.9% 1,000 ML IV SCH ×2 (06:42→17:54)
[2019-07-25] MEDS: Senokot S 8.6-50 MG TAB PO SCH ×2 (08:44→20:55)
[2019-07-25] MEDS: Aspirin 81 mg Enteric Coated Tablet PO SCH ×2 (08:44→20:55)
[2019-07-25] MEDS: Ferrous Gluconate 324 MG TAB PO SCH ×2 (08:44→20:55)
[2019-07-25] MEDS: Multivitamin W/ Minerals 1 TAB PO SCH (08:45)
[2019-07-25] MEDS: Metamucil PACK PO SCH (08:47)
--- NOTE | 2019-07-25 18:09 | PDOC.HOSPP ---
- Subjective Encounter Date: 07/25/19 Encounter Time: 15:00 Subjective: Pt seen for followup re: hypertension. Feels well today, no complaints. - Objective Vital Signs & Weight: Vital Signs (12 hours) Temp Pulse Resp BP Pulse Ox 07/25/19 15:31 98 F 86 18 143/73 H 98 07/25/19 11:27 98.1 F 78 16 157/75 H 95 07/25/19 08:00 96 07/25/19 07:44 98.4 F 81 16 106/56 L 96 Weight Admit Weight 208 lb Weight 208 lb I&O: 07/24/19 07/25/19 07/26/19 06:59 06:59 06:59 Intake Total 1650 Output Total 2575 Balance -925 Result Diagrams: 07/25/19 05:03 Additional Labs: Labs and MARs reviewed by ak Hospitalist ROS - Review of Systems Cardiovascular: denies: chest pain, palpitations, orthopnea, paroxysmal noc. dyspnea, edema, light headedness Gastrointestinal: denies: nausea, vomiting, abdominal pain, diarrhea, constipation, melena, hematochezia - Medication Medications: Active Medications Generic Name Dose Route Start Last Admin Trade Name Freq PRN Reason Stop Dose Admin Hydrocodone Bitart/Acetaminophen 1 tab 07/24/19 06:40 07/25/19 08:44 [place] 10/325 PO 1 tab Q4H PRN Administration Pain (1-3) Aspirin 81 mg 07/24/19 21:00 07/25/19 08:44 Ecotrin PO 81 mg BID JEREMIAH Administration Ferrous Gluconate 324 mg 07/25/19 09:00 07/25/19 08:44 [place]on PO 324 mg BID JEREMIAH Administration Ropivacaine 250 ml/ Device 250 mls @ 10 mls/hr 07/24/19 06:40 07/25/19 12:22 NERVE BLCK 07/27/19 06:39 250 mls INF JEREMIAH Administration Sodium Chloride 1,000 mls @ 100 mls/hr 07/24/19 10:17 07/25/19 17:54 Normal Saline 0.9% IV Not Given .Q10H JEREMIAH Iron/Minerals/Multivitamins 1 tab 07/25/19 09:00 07/25/19 08:45 Theragran M PO 1 tab DAILY JEREMIAH Administration Ketorolac Tromethamine 15 mg 07/24/19 12:00 07/25/19 17:54 Toradol IVP 07/26/19 06:01 15 mg Q6HR JEREMIAH Administration Lisinopril 2.5 mg 07/24/19 21:00 07/24/19 20:12 Zestril PO 2.5 mg HS JEREMIAH Administration Psyllium Hydrophilic Mucilloid 1 pk 07/25/19 09:00 07/25/19 08:47 Metamucil PO 1 pk DAILY JEREMIAH Administration Senna/Docusate Sodium 2 tab 07/25/19 09:00 07/25/19 08:44 Senokot S PO 2 tab BID JEREMIAH Administration - Exam General - other findings: Obese Eye: anicteric sclera ENT: moist mucosa Neck: supple Heart: RRR Respiratory: CTAB, no rales Gastrointestinal: soft, non-tender Musculoskeletal - other findings: s/p L knee surgery Psychiatric: normal affect, normal behavior Hosp A/P (1) HLD (hyperlipidemia) Code(s): E78.5 - HYPERLIPIDEMIA, UNSPECIFIED Status: Chronic (2) HTN (hypertension) Code(s): I10 - ESSENTIAL (PRIMARY) HYPERTENSION Status: Chronic Qualifiers: Hypertension type: essential hypertension Qualified Code(s): I10 - Essential (primary) hypertension (3) Obesity Code(s): E66.9 - OBESITY, UNSPECIFIED Status: Chronic Qualifiers: Obesity classification: adult class 3 (BMI >= 40) Body mass index: BMI 40.0 -44.9 - Plan PT/OT, out of bed/ambulate HTN controlled. Pt allergic to statins. s/p L knee surgery DVT prophylaxis and pain management per orthopedic surgery service.
[2019-07-25] MEDS: Lisinopril 2.5 MG TAB PO SCH (20:58)
[2019-07-26] MEDS: Sodium Chloride 0.9% 1,000 ML IV SCH ×2 (02:46→08:49)
[2019-07-26 05:01] LABS: Hemoglobin 10.8 g/dL (12.0-16.0); Mean Corpuscular HGB CONC 32.7 g/dL (32.0-36.0); Mean Corpuscular Hemoglobin 30.1 pg (27.0-31.0); Mean Corpuscular Volume 91.8 fL (78.0-98.0); Mean Platelet Volume 7.1 fL (7.4-10.4); Platelet Count 209 thou/uL (130-400); Red Blood Cell (RBC) Count 3.61 mill/uL (4.20-5.40); White Blood Cell (WBC) Count 9.2 thou/uL (4.8-10.8)
[2019-07-26] MEDS: Ketorolac Tromethamine 30 MG/ML VIAL IVP SCH (06:13)
[2019-07-26] MEDS: Metamucil PACK PO SCH (08:48)
[2019-07-26] MEDS: Aspirin 81 mg Enteric Coated Tablet PO SCH (08:48)
[2019-07-26] MEDS: Ferrous Gluconate 324 MG TAB PO SCH (08:48)
[2019-07-26] MEDS: Senokot S 8.6-50 MG TAB PO SCH (08:48)
[2019-07-26] MEDS: Multivitamin W/ Minerals 1 TAB PO SCH (08:48)
[2019-07-26 11:14] VITALS: BP 135/78; TEMP 97.9
--- NOTE | 2019-07-27 05:17 | PQF ---
,CR MITCHELL [id number] [facility] [id number] CLINICAL DOCUMENTATION CLARIFICATION FORM: POST DISCHARGE Addendum to original discharge summary date: ____ Late entry note date: __ DATE: 07/27/19 ATTN: Cr Medina Please exercise your independent, professional judgment in responding to the clarification form. Clinical indicators are provided on the bottom of this form for your review Please check appropriate box(s) to clarify if the following diagnosis has been ruled in or ruled out: Acute cerebral infarction [ ] Ruled in diagnosis [ ] Continue to treat [ ] Resolved [ ] Ruled out diagnosis [ ] Cannot rule out diagnosis [ x ] Other diagnosis h/o stroke [ ] Unable to determine In addition, please specify: Present on Admission (POA): [ x ] Yes [ ] No [ ] Unable to determine For continuity of documentation, please document condition throughout progress notes and discharge summary. Thank You. CLINICAL INDICATORS - SIGNS / SYMPTOMS / LABS PN 07/24 "Acute cerebral infarction" PN 07/25 "Patient seen for follow up of HTN" PN 07/25 "HTN controlled" RISK FACTORS PN 07/24-CAD PN 07/24-HTN PN 07/24-Obesity PN 07/25-s/p TKA Anethesia 07/24-HLD TREATMENTS Discharge Medication 07/26-Aspirin 325mg Oral Discharge Medication 07/26-Lisiopril 2.5mg Oral (This form is maintained as a part of the permanent medical record) 2014 [employer]. All Rights Reserved [email or web address] [email or web address] [not provided] MTDD
== END 2019-07-26 16:10 | disposition home or self-care (01) | DRG 470 ==
LOC: SJJU 07-24 05:31
PROVIDERS: ADMIT Orthopaedic Surgery; ATTEND Orthopaedic Surgery
PROC: 0SRD0J9 Replacement of Left Knee Joint with Synthetic Substitute, Cemented, Open Approach (ICD-10-PCS; principal; 2019-07-24)
DX: M17.12 Unilateral primary osteoarthritis, left knee (principal); Z68.41 Body mass index [BMI] 40.0-44.9, adult; I25.10 Atherosclerotic heart disease of native coronary artery without angina pectoris; I10 Essential (primary) hypertension; E78.5 Hyperlipidemia, unspecified; E66.01 Morbid (severe) obesity due to excess calories; F32.9 Major depressive disorder, single episode, unspecified; Z88.8 Allergy status to other drugs, medicaments and biological substances; Z86.73 Personal history of transient ischemic attack (TIA), and cerebral infarction without residual deficits
CPT/HCPCS: 36415; 85027; C1713; C1776; J0690; J1885; J2001; J2250; J2405; J2704; J2795; J3010; J3490; S0020

== ENCOUNTER 2019-11-15 09:30 | Day surgery (SDC) | payer BC, MEDICARE ==
[2019-11-14 11:27] VITALS: BMI 37.5
[2019-11-15] MEDS ORDERED: Fentanyl 100 MCG/2 ML VIAL ONE ×2 (09:46→11:19)
[2019-11-15] MEDS ORDERED: Midazolam HCl 2 mg/2 ml Vial ONE (09:46)
[2019-11-15] MEDS ORDERED: Dexamethasone 4 mg/ml Vial ONE (09:48)
[2019-11-15] MEDS ORDERED: Bupivacaine HCl 0.5%/Epinephrine 1:200,000/PF 30 ml Vial ONE (09:49)
[2019-11-15] MEDS ORDERED: Lidocaine 1% PF 5 ML VIAL ONE (09:49)
[2019-11-15] MEDS ORDERED: Ondansetron PF 4 MG/2 ML Vial ONE (09:49)
[2019-11-15] MEDS ORDERED: PROPOFOL 200 MG/20 ML VIAL ONE (09:49)
[2019-11-15] MEDS ORDERED: Dexamethasone 20 MG/5 ML VIAL ONE ×2 (09:49)
--- NOTE | 2019-11-15 09:59 | HP ---
HISTORY OF PRESENT ILLNESS: Ms. Mendoza is a 64-year-old female, status post total knee arthroplasty on 07/24/2019. The patient's pain is from 1 to 4/10. She is pleased with her pain control, but her function has not been good. Currently, she is about 0 to 80 degrees in the bed. The patient's gait is slightly antalgic. Sh is neurovascularly intact distally, but she is having problems with range of motion. PAST MEDICAL HISTORY: Hyperlipidemia, hypertension, history of CVA PAST SURGICAL HISTORY: Tonsillectomy; ; and total knee arthroplasty, left. MEDICATIONS: Include; 1. Aspirin. 2. Flexeril. 3. Lisinopril. 4. Metamucil. 5. Quinine. 6. Tramadol. ALLERGIES: TO ATORVASTATIN. SOCIAL HISTORY: The patient is a nonsmoker. No alcohol. She is retired. PHYSICAL EXAMINATION: GENERAL: Alert and oriented female, in no acute distress. EXTREMITIES: Left lower extremity, the patient got well-healed surgical scar. She has 0 to 80 degrees of motion. Neurovascularly intact. Stable knee, medial to lateral. IMAGING DATA: Radiographs showed no signs of failure of components fracture. IMPRESSION: Postoperative stiffness, left total knee arthroplasty. ASSESSMENT AND PLAN: The patient will be taken back for a manipulation. She will receive a femoral block preprocedure. I discussed with family and the patient the risks and benefits of the procedure to include pain, scar, bleeding, infection, failure of the procedure, continued stiffness, potential patellar fracture, blood clots, loss of life or limb. I discussed that given she is almost 4 months out from the procedures, slightly increased risk of complication. I discussed that the patient's manipulation will pose a risk of patella fracture and she understands this. She understands that we will need therapy started tomorrow. She will begin her aspirin and I will follow her in-house. Job ID: [id number] [facility]
--- NOTE | 2019-11-15 12:26 | RAD ---
THREE VIEWS LEFT KNEE: HISTORY: Left knee manipulation. COMPARISON: 07/24/2019. FINDINGS: There is a left knee arthroplasty. No perihardware lucency. No fracture, cortical irregularity, or periosteal reaction. No joint effusion. Minimal atherosclerosis is noted. IMPRESSION: Uncomplicated left knee arthroplasty. POS: CET
--- NOTE | 2019-11-17 10:00 | OP ---
DATE OF PROCEDURE: 11/15/2019 PREOPERATIVE DIAGNOSIS: Stiffness. POSTOPERATIVE DIAGNOSIS: Stiffness. PROCEDURE PERFORMED: Left total knee arthroplasty manipulation under anesthesia. ANESTHESIOLOGIST: Jaziel Jimenez MD ANESTHESIA: The patient received a LMA and a single-shot femoral block. ESTIMATED BLOOD LOSS: None. TOURNIQUET TIME: None. ANTIBIOTICS: Ancef 2 g. COMPLICATIONS: None. HISTORY OF PRESENT ILLNESS: Ms. Mendoza is a 64-year-old female, postop total knee. She had plateaued about 0 to 85. I discussed with the patient risks and benefits of left knee manipulation to include, pain, scar, bleeding, infection, fracture above or below the stem, fracture of the patella, hip pain, and continued loss of motion. The patient and family understood the risks and benefits of procedure and elected to proceed. DESCRIPTION OF PROCEDURE: Time-out was performed, designating the patient's left lower extremity as the operative site based on site, consents, and marking. After time-out, the patient's left lower extremity was evaluated with goniometer. She had 0 to about 86 degrees with a goniometer, maybe -3 to 86. I was able to extend her leg and then flex and then general pops and moved back to extension, then moving out to flexion and back to extension. I did not feel another pop or potential fracture during the manipulation. I got her on the goniometer from about 0 to 128 degrees. I took AP, lateral, and flex lateral x-rays for evaluation of the amount of flexion as well to ensure the patella did not break, her femur did not break. The patient had stable knee on exam. We completed our procedure. The patient will be weightbearing as tolerated. She will follow up with therapy in the morning. She will get her femoral block. I will see her back in about 3 to 4 weeks to check her motion. Job ID: [id number]
== END 2019-11-15 13:50 | disposition home or self-care (01) ==
LOC: SDC 09:30
PROVIDERS: ATTEND Orthopaedic Surgery
PROC: 0SNDXZZ Release Left Knee Joint, External Approach (ICD-10-PCS; principal; 2019-11-15)
DX: M25.662 Stiffness of left knee, not elsewhere classified (principal); E78.5 Hyperlipidemia, unspecified; I10 Essential (primary) hypertension; Z96.652 Presence of left artificial knee joint; Z79.82 Long term (current) use of aspirin; Z79.899 Other long term (current) drug therapy; Z88.8 Allergy status to other drugs, medicaments and biological substances; Z90.89 Acquired absence of other organs; Z98.890 Other specified postprocedural states; Z86.73 Personal history of transient ischemic attack (TIA), and cerebral infarction without residual deficits
CPT/HCPCS: 93005; 93010; J0670; J0690; J1100; J2001; J2250; J2405; J2704; J3010

== ENCOUNTER 2019-11-15 19:04 | Inpatient (IN) | payer BC, MEDICARE ==
[2019-11-15] MEDS ORDERED: Lorazepam 2 MG/ML VIAL ONE (19:32)
[2019-11-15] MEDS ORDERED: Fentanyl 100 MCG/2 ML VIAL ONE (19:32)
[2019-11-15] MEDS ORDERED: Ketorolac Tromethamine 30 MG/ML VIAL ONE (19:33)
--- NOTE | 2019-11-15 20:30 | RAD ---
LEFT KNEE TWO VIEWS: 11/15/19 HISTORY: Patient had manipulation of the knee to increase range of motion earlier today. COMPARISON: 07/24/19 and 11/15/19 exam. There is now a fracture of the distal femur just at the level of the superior aspect of the femur com ponent of the prosthesis. Femoral shaft is anteriorly displaced. IMPRESSION: Femoral fracture at the level of the superior portion of the femoral component of the knee prosthesis . POS: VERNON
[2019-11-15 20:34] LABS: #Lymphocytes 0.9 thou/uL (1.20-3.40); #Monocytes 0.1 thou/uL (0.11-0.59); #Neutrophils 5.5 thou/uL (1.40-6.50); %Basophils 0.1 % (0.0-1.0); %Eosinophils 0.1 % (0.0-10.0); %Lymphocytes 13.1 % (21.0-51.0); %Monocytes 1.5 % (0.0-10.0); %Neutrophils 85.3 % (42.0-75.0); Hemoglobin 12.3 g/dL (12.0-16.0); Mean Corpuscular HGB CONC 33.7 g/dL (32.0-36.0); Mean Corpuscular Hemoglobin 30.9 pg (27.0-31.0); Mean Corpuscular Volume 91.7 fL (78.0-98.0); Mean Platelet Volume 7.1 fL (7.4-10.4); Platelet Count 303 thou/uL (130-400); RBC Distribution Width 13.2 % (11.5-14.5); Red Blood Cell (RBC) Count 3.97 mill/uL (4.20-5.40); White Blood Cell (WBC) Count 6.5 thou/uL (4.8-10.8)
--- NOTE | 2019-11-15 20:35 | RAD ---
AP PELVIS: 11/15/19 HISTORY: Pelvic pain. The patient is rotated on this exam. The pelvic ring appears intact without evidence of fracture. Art hritic changes of the spine are noted. Mild arthritic changes of both hips. IMPRESSION: No acute injury. POS: VERNON
--- NOTE | 2019-11-15 20:37 | RAD ---
CHEST ONE VIEW: 11/15/19 HISTORY: Preop evaluation. COMPARISON: Chest radiograph 06/15/19. FINDINGS: There is scarring in the right lung base. Remainder of lungs are clear. No pneumothorax. No effusion. No acute osseous abnormality. IMPRESSION: No acute intrathoracic abnormality. POS: HOME
[2019-11-15 20:41] LABS: INR-International Normal Ratio 1.1; PTT 32.7 SEC (22.9-36.1); Prothrombin Time 13.9 SEC (12.0-14.7)
[2019-11-15] MEDS ORDERED: Morphine 2 MG/ML SYRINGE SLOW IVP PRN (20:52)
[2019-11-15] MEDS ORDERED: Cyclobenzaprine 10 MG TAB PO PRN (20:56)
[2019-11-15] MEDS ORDERED: Communication Order-Pharmacy FS SCH (21:00)
[2019-11-15 21:04] LABS: ALT (SGPT) 15 U/L (8-55); AST (SGOT) 18 U/L (5-34); Albumin 3.8 g/dL (3.4-4.8); Alkaline Phosphatase 85 U/L (40-110); Anion Gap 13 mmol/L (10-20); BUN (Urea Nitrogen) 13 mg/dL (9.8-20.1); Bilirubin, Total 0.4 mg/dL (0.2-1.2); Calc. Creatinine Clearance 0 mL/min (70-130); Calcium 8.8 mg/dL (7.8-10.44); Carbon Dioxide 21 mmol/L (23-31); Chloride 107 mmol/L (98-107); Estimated GFR-MDRD 70; Glucose 163 mg/dL (80-115); Potassium 4.1 mmol/L (3.5-5.1); Protein, Total 6.8 g/dL (6.0-8.3); Sodium 137 mmol/L (136-145)
[2019-11-15 21:32] LABS: Bilirubin Negative (Negative); Blood, Urine Negative (Negative); Clarity Clear (Clear); Glucose, Urine (Dipstick) Normal (Negative); Leukocyte Negative Leu/uL (Negative); Nitrite Negative (Negative); Protein, Urine (Dipstick) 10 mg/dL (Neg-Trace); Urobilinogen Normal mg/dL (Less than 2)
--- NOTE | 2019-11-15 22:00 | CT ---
CT OF LEFT KNEE PERFORMED WITHOUT CONTRAST ENHANCEMENT: 11/15/19 HISTORY: Patient fell. There is a slightly obliquely oriented fracture of the distal femoral shaft. This occurs just along t he superior margin of the femoral component of the knee prosthesis. The femoral shaft is anteriorly d isplaced. It is also medially displaced on this view. IMPRESSION: Total knee prosthesis with a fairly obliquely oriented fracture located just along the superior ry n of the femoral component of the prosthesis. POS: VERNON
[2019-11-15 23:19] VITALS: BMI 37.5
[2019-11-16 05:41] LABS: #Lymphocytes 1.5 thou/uL (1.20-3.40); #Monocytes 0.7 thou/uL (0.11-0.59); #Neutrophils 11.8 thou/uL (1.40-6.50); %Basophils 0.1 % (0.0-1.0); %Lymphocytes 10.4 % (21.0-51.0); %Monocytes 5.1 % (0.0-10.0); %Neutrophils 84.3 % (42.0-75.0); Hemoglobin 11.6 g/dL (12.0-16.0); Mean Corpuscular HGB CONC 34.3 g/dL (32.0-36.0); Mean Corpuscular Hemoglobin 31.5 pg (27.0-31.0); Mean Corpuscular Volume 91.8 fL (78.0-98.0); Mean Platelet Volume 7.1 fL (7.4-10.4); Platelet Count 278 thou/uL (130-400); RBC Distribution Width 13.2 % (11.5-14.5); Red Blood Cell (RBC) Count 3.68 mill/uL (4.20-5.40)
--- NOTE | 2019-11-16 09:32 | HP ---
HISTORY OF PRESENT ILLNESS: Ms. Mendoza is a pleasant 64-year-old female, who underwent a RYDER her left knee total knee arthroplasty. The patient was discharged after being evaluated by Physical Therapy. With a knee immobilizer and her walker, she went to a hotel for the evening and the patient fell while she was getting up off the toilet, said her foot flipped, she fell on her left leg. She presents with a gross deformity. PAST MEDICAL HISTORY: Includes stroke, , obesity. PAST SURGICAL HISTORY: Left knee arthroplasty and left knee manipulation. ALLERGIES: NO KNOWN ALLERGIES. SOCIAL HISTORY: Nondrinker. Nonsmoker. PHYSICAL EXAMINATION: GENERAL: Alert and oriented female, in no acute distress. EXTREMITIES: Left extremity is externally rotated ER, in KI IMAGING DATA: Radiographs show a distal periprosthetic femur fracture roughly at the level of patient's flange IMPRESSION: Periprosthetic femur fracture. ASSESSMENT AND PLAN: The patient discussed with family at bedside that she would either need a nail versus a plate for this periprosthetic femur fracture. I discussed that postoperatively she would have some stiffness, which we were trying to calm down with manipulation. I discussed the risks and benefits of surgery, pain, scar, bleeding, infection, damage to vital structures, malunion, nonunion, blood clot, loss of life or limb. The patient understood that she will have to be non-weightbearing for 12 weeks. Plan to do it tomorrow, n.p.o. CARI for ORIF. Job ID: [id number] MTDD
[2019-11-16] MEDS ORDERED: PROPOFOL 200 MG/20 ML VIAL ONE (09:53)
[2019-11-16] MEDS ORDERED: Rocuronium Bromide 10 MG/ML (10ML VIAL) ONE (09:53)
[2019-11-16] MEDS ORDERED: Dexamethasone 20 MG/5 ML VIAL ONE (09:53)
[2019-11-16] MEDS ORDERED: Glycopyrrolate 0.2 MG/ML 5 ML SYRINGE ONE (09:53)
[2019-11-16] MEDS ORDERED: Esmolol 100 MG/10 ML VIAL ONE (09:53)
[2019-11-16] MEDS ORDERED: Ondansetron PF 4 MG/2 ML Vial ONE (09:53)
[2019-11-16] MEDS ORDERED: Ketorolac Tromethamine 30 MG/ML VIAL ONE (09:53)
[2019-11-16] MEDS: Lisinopril 2.5 MG TAB PO SCH (10:37)
[2019-11-16] MEDS ORDERED: Fentanyl 100 MCG/2 ML VIAL ONE ×3 (11:57→14:56)
[2019-11-16] MEDS ORDERED: Vancomycin 1.5 GRAM/300 ML BAG 1.5 GM/300 ML BAG ONE (12:08)
--- NOTE | 2019-11-16 14:10 | RAD ---
Exam:Intraoperative fluoroscopy HISTORY: Internal fixation hardware placement for distal left femur fracture. ORIF. COMPARISON: None FINDINGS: 6 intraoperative fluoroscopic views demonstrate placement of a distal side plate with multi ple screws traversing the left femur. Distal femur fracture lucency is identified. Near anatomic alignment. Incidental knee arthroplasty Exposure: 110.6 seconds. 12.77 mg IMPRESSION: Intraoperative fluoroscopy as above
[2019-11-16] MEDS ORDERED: Acetaminophen 325 MG TAB PO PRN (14:33)
[2019-11-16] MEDS ORDERED: Ondansetron PF 4 MG/2 ML Vial IV PRN (14:33)
[2019-11-16] MEDS ORDERED: traMADol HCl 50 MG TAB PO PRN ×2 (14:33)
[2019-11-16] MEDS ORDERED: Bisacodyl 10 MG SUPP PR PRN (14:33)
[2019-11-16] MEDS ORDERED: Milk Of Magnesia 30 ML UDCUP PO PRN (14:33)
[2019-11-16] MEDS ORDERED: TETANUS AND DIPHTHERIA TOX/PF 0.5 ML DISP.SYRIN IM SCH (14:33)
[2019-11-16] MEDS ORDERED: Promethazine HCl 25 MG/ML VIAL IM PRN ×2 (14:33→14:45)
[2019-11-16] MEDS ORDERED: Communication Order-Pharmacy FS ONE (14:33)
[2019-11-16] MEDS ORDERED: HYDROcodone/Acetaminophen 5/325 mg Tablet PO PRN (14:33)
[2019-11-16] MEDS ORDERED: Fentanyl 100 MCG/2 ML VIAL SLOW IVP PRN (14:33)
[2019-11-16] MEDS ORDERED: HYDROmorphone 2 MG/ML VIAL SLOW IVP PRN (14:45)
[2019-11-16] MEDS ORDERED: Ondansetron HCl/PF 4 MG/2 ML Vial IVP PRN (14:45)
[2019-11-16] MEDS ORDERED: Promethazine HCl 25 MG/ML VIAL SLOW IVP PRN (14:45)
[2019-11-16] MEDS ORDERED: Vancomycin 1.5 GRAM/300 ML BAG 1.5 GM in Premix Bag 1 BAG IVPB SCH (16:00)
[2019-11-16] MEDS: Aspirin 81 mg Enteric Coated Tablet PO SCH (20:35)
[2019-11-16] MEDS: CEFAZOLIN 2 GM in Premix Bag 1 BAG IVPB SCH (20:35)
[2019-11-17] MEDS: CEFAZOLIN 2 GM in Premix Bag 1 BAG IVPB SCH (05:05)
[2019-11-17] MEDS: HYDROcodone/Acetaminophen 10/325 mg Tablet PO PRN ×2 (05:10→16:29)
[2019-11-17 06:09] LABS: #Lymphocytes 2.5 thou/uL (1.20-3.40); #Monocytes 1.1 thou/uL (0.11-0.59); #Neutrophils 9.8 thou/uL (1.40-6.50); %Basophils 0.1 % (0.0-1.0); %Eosinophils 0.1 % (0.0-10.0); %Lymphocytes 18.4 % (21.0-51.0); %Monocytes 7.9 % (0.0-10.0); %Neutrophils 73.5 % (42.0-75.0); Hemoglobin 10.2 g/dL (12.0-16.0); Mean Corpuscular HGB CONC 33.4 g/dL (32.0-36.0); Mean Corpuscular Hemoglobin 31.2 pg (27.0-31.0); Mean Corpuscular Volume 93.3 fL (78.0-98.0); Mean Platelet Volume 7.1 fL (7.4-10.4); Platelet Count 239 thou/uL (130-400); RBC Distribution Width 13.3 % (11.5-14.5); Red Blood Cell (RBC) Count 3.26 mill/uL (4.20-5.40); White Blood Cell (WBC) Count 13.3 thou/uL (4.8-10.8)
[2019-11-17 06:31] LABS: ALT (SGPT) 8 U/L (8-55); AST (SGOT) 13 U/L (5-34); Alkaline Phosphatase 66 U/L (40-110); Anion Gap 11 mmol/L (10-20); BUN (Urea Nitrogen) 11 mg/dL (9.8-20.1); Bilirubin, Total 0.4 mg/dL (0.2-1.2); Calc. Creatinine Clearance 108 mL/min (70-130); Calcium 8.1 mg/dL (7.8-10.44); Carbon Dioxide 22 mmol/L (23-31); Chloride 109 mmol/L (98-107); Estimated GFR-MDRD 79; Globulin 2.3 g/dL (2.4-3.5); Glucose 99 mg/dL (80-115); Protein, Total 5.3 g/dL (6.0-8.3); Sodium 138 mmol/L (136-145)
[2019-11-17] MEDS: Aspirin 81 mg Enteric Coated Tablet PO SCH ×2 (09:11→20:30)
[2019-11-17] MEDS: Lisinopril 2.5 MG TAB PO SCH (09:12)
[2019-11-18] MEDS: HYDROcodone/Acetaminophen 10/325 mg Tablet PO PRN ×2 (00:29→14:49)
[2019-11-18] MEDS: Aspirin 81 mg Enteric Coated Tablet PO SCH ×2 (08:05→21:12)
[2019-11-18] MEDS: Lisinopril 2.5 MG TAB PO SCH (08:05)
[2019-11-19] MEDS: Aspirin 81 mg Enteric Coated Tablet PO SCH ×2 (09:23→20:00)
[2019-11-19] MEDS: Lisinopril 2.5 MG TAB PO SCH (09:24)
--- NOTE | 2019-11-19 13:56 | OP ---
DATE OF PROCEDURE: 11/16/2019 PREOPERATIVE DIAGNOSIS: Perioprosthetic fracture, total knee arthroplasty with distal femur fracture, extra-articular supracondylar POSTOPERATIVE DIAGNOSIS: Periprosthetic fracture, total knee arthroplasty with distal femur fracture, extra-articular supracondylar PROCEDURE PERFORMED: Open reduction and internal fixation of left distal femur fracture. THINNER SPRAYER: Osmar Kemp PA-C. ANESTHESIA: Dr. Jo/Jaziel Jimenez MD, patient received a general. ESTIMATED BLOOD LOSS: 30 mL. TOURNIQUET TIME: None. IMPLANTS: synthes 4.5 x 16 hole plate with one 4.5 nonlocking screw, 1 conical screw, eight 5 mm locking screws. COMPLICATIONS: None. INDICATIONS FOR PROCEDURE: Ms. Mendoza is a 64-year-old female who underwent total knee arthroplasty four months ago, underwent manipulation yesterday. The patient fell getting up from the commode breaking her femur. I discussed with the patient risks and benefits of first intramedullary nailing to include pain, scar, bleeding, infection, nonunion, malunion, fracture above or below the stem, stiffness, continued pain despite surgical intervention, damage to vital structures, loss of life or limb, blood clots, the patient understood these risks and benefits and elected proceed. DESCRIPTION OF PROCEDURE: Time-out was performed designating the patient's left lower extremity as the operative site based on site, consent, and marking. After time-out, the patient's lower extremity was prepped and draped in sterile fashion. I made an incision down to the skin, down to the IT band along the patient's lateral epicondyle of the femur. We came and took the vastus anteriorly and used a Steve to go down the lateral aspect of the femur. We used a bone hook as well as a Hohmann to help reduce our fracture into position. We slid our plate. We had pre- measured, looked in AP and lateral radiographs, liked the position, pinned in place distally and proximally. We placed 4.5 cortical screw into the shaft to hold the plate on the bone. Distally, we used a conical screw to hold the plate on the bone. The bone was perfectly reduced, and had apposition. We then placed four locking screws distally. We did four locking screws proximally. We used it as a fixed angle construct, did not want to put in compression screws in and decrease the reduction. We took final x-rays, AP and lateral radiographs show the bone in near anatomic position. I was happy overall with alignment. We opened up the arthrotomy, placed the plate with pin proximally and distally. We placed our screws. We washed and closed the IT band with #1, 0, 2-0, and skin with cirilo. The patient will be placed in a soft tissue dressing. She will be admitted to the floor, placed in a knee immobilizer. She will be nonweightbearing. She had perioperative antibiotics Ancef and vanc. Job ID: [id number] [facility]
[2019-11-19] MEDS: HYDROcodone/Acetaminophen 10/325 mg Tablet PO PRN (15:40)
[2019-11-20] MEDS: Lisinopril 2.5 MG TAB PO SCH (10:22)
[2019-11-20] MEDS: Aspirin 81 mg Enteric Coated Tablet PO SCH ×2 (10:22→20:10)
[2019-11-20] MEDS: HYDROcodone/Acetaminophen 10/325 mg Tablet PO PRN ×2 (11:37→20:10)
[2019-11-21 05:12] VITALS: BP 108/67
[2019-11-21] MEDS: Lisinopril 2.5 MG TAB PO SCH (07:52)
[2019-11-21] MEDS: Aspirin 81 mg Enteric Coated Tablet PO SCH (07:52)
[2019-11-21 08:26] VITALS: TEMP 98.1
--- NOTE | 2019-11-24 13:33 | EKG ---
Test Reason : Blood Pressure : / mmHG Vent. Rate : 086 BPM Atrial Rate : 086 BPM P-R Int : 136 ms QRS Dur : 086 ms QT Int : 392 ms P-R-T Axes : 041 -18 032 degrees QTc Int : 469 ms Normal sinus rhythm Normal ECG Confirmed by NICHOLE SALAZAR, NICHO ([id number]), online content editor CHERI DYER ([id number]) on 11/24/2019 1:33:27 PM Referred By: Confirmed By:NICHO VARELA MD
== END 2019-11-21 11:15 | DRG 481 ==
LOC: ERS 19:04 → SJJU 20:26
PROVIDERS: ADMIT Orthopaedic Surgery; ATTEND Orthopaedic Surgery
PROC: 0QSC04Z Reposition Left Lower Femur with Internal Fixation Device, Open Approach (ICD-10-PCS; principal; 2019-11-16)
DX: S72.452A Displaced supracondylar fracture without intracondylar extension of lower end of left femur, initial encounter for closed fracture (principal); M97.12XA Periprosthetic fracture around internal prosthetic left knee joint, initial encounter; E66.9 Obesity, unspecified; E78.5 Hyperlipidemia, unspecified; W18.39XA Other fall on same level, initial encounter; Z86.73 Personal history of transient ischemic attack (TIA), and cerebral infarction without residual deficits; Z68.37 Body mass index [BMI] 37.0-37.9, adult; Y93.89 Activity, other specified; Y92.89 Other specified places as the place of occurrence of the external cause
CPT/HCPCS: 36415; 51701; 71045; 72170; 76000; 80053; 81003; 85025; 85610; 85730; 86850; 86900; 86901; 93005; 96374; 96375; C1713; C1769; J0690; J1100; J1885; J2060; J2250; J2270; J2405; J2704; J3010

== ENCOUNTER 2024-11-08 09:01 | Outpatient (CLI) | payer MEDICARE | END 2024-11-08 09:02 | disposition home or self-care (01) | LOC: ULT 09:01 | PROVIDERS: ATTEND Family Medicine | DX: E80.6 Other disorders of bilirubin metabolism (principal); R74.01 Elevation of levels of liver transaminase levels | CPT/HCPCS: 76705 ==